=== PATIENT | male | born 1970 | race Caucasian/White ===

== ENCOUNTER → 2024-03-27 06:35 | Day surgery (SDC) | payer BC, SELFPAY ==
[2024-03-27 12:05] LABS: Glucose - Point of Care 93 mg/dl (70-99)
== END ==
LOC: GI 06:35
PROVIDERS: ATTENDING PHYSICIAN Internal Medicine Gastroenterology
DX: K29.50 Unspecified chronic gastritis without bleeding (principal); K22.89 Other specified disease of esophagus; K31.7 Polyp of stomach and duodenum; K31.89 Other diseases of stomach and duodenum; K21.9 Gastro-esophageal reflux disease without esophagitis
CPT/HCPCS: 43239; 88305; 82962; 88342